=== PATIENT | female | born 1955 | race Two or more races ===

== ENCOUNTER → 2017-12-04 | Day surgery (SDC) | payer OTHER ==
[~2017-12-04] MED LIST: COZAAR50 MG PO; HYDROCHLORIZIDE PO; KETO10TA2 PO; LIPIT PO; METROPOROL PO; SYNTHROID50 MCG PO
== END | disposition home or self-care (01) ==
LOC: ADM 12-02 10:15 → CIR.AMB 10:15
DX: N84.0 Polyp of corpus uteri (principal); N95.0 Postmenopausal bleeding; D25.0 Submucous leiomyoma of uterus